=== PATIENT | female | born 2000 | race American Indian/Alaskan Native ===

== ENCOUNTER 2021-05-25 13:03 | Emergency (ER) | payer MEDICAID ==
[2021-05-25 13:10] VITALS: BP 122/94
--- NOTE | 2021-05-25 16:20 | Emergency Department Report ---
ED Dysuria HPI - HPI Duration: 1 Day Severity: None Symptoms: Dysuria: No, Frequency: No, Suprapubic Pain: No, Flank Pain: No, Fever: No, Hematuria: No, Abdominal Pain: No, Previous UTI's: No Other History: Patient is a 20-year-old female that comes to the emergency room because she had a period this month and today she started bleeding again yesterday. Her last menstrual period was 3-30. She is concerned that she is . Patient denies any history of irregular menses. She is ambulatory, nonill nontoxic on arrival. She is sexually active. She has never been in the past. He denies any dysuria or discharge. She denies fever or chills. She just reports the lower back cramping. <LENKA BONNER - Last Filed: 05/25/21 16:28> <DANELLE GARCIA - Last Filed: 05/25/21 17:07> - HPI Chief Complaint: Vaginal Bleeding Stated Complaint: VAGINAL BLEEDING Time Seen by Provider: 05/25/21 14:03 ED Review of Systems ROS: Stated complaint: VAGINAL BLEEDING Other details as noted in HPI Comment: All other systems reviewed and negative <LENKA BONNER - Last Filed: 05/25/21 16:28> ROS: Stated complaint: VAGINAL BLEEDING Other details as noted in HPI <DANELLE GARCIA - Last Filed: 05/25/21 17:07> ED Past Medical Hx - Past Medical History Previous Medical History?: Yes Hx Hypertension: Yes - Surgical History Past Surgical History?: No - Family History Family history: no significant - Social History Smoking Status: Never Smoker Substance Use Type: Alcohol <LENKA BONNER - Last Filed: 05/25/21 16:28> <DANELLE GARCIA - Last Filed: 05/25/21 17:07> - Medications Home Medications: Home Medications Medication Instructions Recorded Confirmed Last Taken Type Naproxen [Naprosyn] 500 mg PO BID #14 tab 05/25/21 Unknown Rx Dysuria Exam - Exam General: Vital signs noted. No distress. Alert and acting appropriately. Exam: Yes Moist Mucous Membranes, No CVA Tenderness, No Abdominal Tenderness, No Rigidity or Guarding <LENKA BONNER A - Last Filed: 05/25/21 16:28> - Exam General: Vital signs noted. No distress. Alert and acting appropriately. Labs: Lab Results 05/25/21 Range/Units Unknown Urine Color Straw (Yellow) Urine Turbidity Clear (Clear) Urine pH 6.0 (5.0-7.0) Ur Specific [place] 1.003 (1.003-1.030) Urine Protein <15 mg/dl (Negative) mg/dL Urine Glucose (UA) Neg (Negative) mg/dL Urine Ketones Neg (Negative) mg/dL Urine Blood Lg (Negative) Urine Nitrite Neg (Negative) Ur Reducing Substances Not Reportable Urine Bilirubin Neg (Negative) Urine Ictotest Not Reportable Urine Urobilinogen < 2.0 (<2.0) mg/dL Ur Leukocyte Esterase Neg (Negative) Urine WBC (Auto) < 1.0 (0.0-6.0) /HPF Urine RBC (Auto) 4.0 (0.0-6.0) /HPF U Epithel Cells (Auto) 2.0 (0-13.0) /HPF Urine Bacteria (Auto) 2+ (Negative) /HPF Urine HCG, Qual Negative (Negative) <DANELLE GARCIA - Last Filed: 05/25/21 17:07> ED Course Vital Signs 05/25/21 13:08 Temperature 98.3 F Pulse Rate 88 Respiratory 17 Rate Blood Pressure 122/94 [Right] O2 Sat by Pulse 99 Oximetry <LENKA BONNER A - Last Filed: 05/25/21 16:28> Vital Signs 05/25/21 13:08 Temperature 98.3 F Pulse Rate 88 Respiratory 17 Rate Blood Pressure 122/94 [Right] O2 Sat by Pulse 99 Oximetry <DANELLE GARCIA - Last Filed: 05/25/21 17:07> ED Medical Decision Making - Medical Decision Making Vital Signs 05/25/21 13:08 Temperature 98.3 F Pulse Rate 88 Respiratory 17 Rate Blood Pressure 122/94 [Right] O2 Sat by Pulse 99 Oximetry 1634 I have called the lab and they do not have the patient's urine. The EMG and fast-track has been made aware. We will sign out to Ms. Calvin; who will dispo patient pending findings of her urine. - Differential Diagnosis RO UTI/PREG <LENKA BONNER - Last Filed: 05/25/21 16:28> - Medical Decision Making Urine negative for urinary tract infection and . Patient will be treated with 7-day course of naproxen to improve vaginal bleeding and advised to follow-up with [facility] for further evaluation and management. She verbalized understanding of and agreement with plan of care. <DANELLE GARCIA - Last Filed: 05/25/21 17:07> Critical care attestation.: If time is entered above; I have spent that time in minutes in the direct care of this critically ill patient, excluding procedure time. <LENKA BONNRE - Last Filed: 05/25/21 16:28> Critical care attestation.: If time is entered above; I have spent that time in minutes in the direct care of this critically ill patient, excluding procedure time. <DANELLE GARCIA - Last Filed: 05/25/21 17:07> ED Disposition Is pt being admited?: No Does the pt Need Aspirin: No Time of Disposition: 16:23 <LENKA BONNER - Last Filed: 05/25/21 16:28> Is pt being admited?: No Does the pt Need Aspirin: No Time of Disposition: 17:07 <DANELLE GARCIA - Last Filed: 05/25/21 17:07> Clinical Impression: Vaginal bleeding Disposition: 01 HOME / SELF CARE / HOMELESS Condition: Stable Instructions: Abnormal Uterine Bleeding, [id number] Additional Instructions: Take medications as prescribed. Tylenol for pain. Follow-up with [facility] as instructed. There is a referral below. Prescriptions: Naproxen [Naprosyn] 500 mg PO BID #14 tab Referrals: TONYA SANTOS MD [Staff Physician] - 3-5 Days TANIKA WHARTON MD [Staff Physician] - 3-5 Days
[2021-05-25 16:52] LABS: HCG Qualitative,Urine Negative (Negative)
[2021-05-25 16:55] LABS: Bacteria,Urine 2+ /HPF (Negative); Bilirubin,Urine NEG (Negative); Blood,Urine LG (Negative); Color,Urine Straw (Yellow); Protein,Urine <15 mg/dL mg/dL (Negative); Urobilinogen,Urine < 2.0 mg/dL (<2.0); WBC,Urine < 1.0 /HPF (0.0-6.0)
== END 2021-05-25 17:52 | disposition home or self-care (01) ==
LOC: ED 13:03
DX: N98.9 Complication associated with artificial fertilization, unspecified (principal)
CPT/HCPCS: 81001; 81025; 99283